=== PATIENT | male | born 1985 | race Caucasian/White ===

== ENCOUNTER → 2017-03-22 | Outpatient (CLI) | payer BC ==
[~2017-03-22] MED LIST: NO MEDICATIONS
--- NOTE | ~2017-03-22 | CR63 ---
[facility] A Service of [facility] & [facility] RADIOLOGY TEXT RESULTS PATIENT: DOROTEO AGARWAL LOCATION: [facility] : [birth year] UNIT #: [id number] AGE: [address]: Barbra Antoine APRN SEX: M ORDER DR: [id number] [facility] [address] [place], [place] [address] [id number] O MR#: [id number] Acc #: [id number] NAME: DOROTEO AGARWAL : 1985 SEX: M STUDY DATE/TIME: 03/22/2017 11:55 UNIT: [facility] ROOM: STUDY DESCRIPTION: CR Chest 2 View Attending Physician: Barbra Antoine Aprn Referring Physician: Barbra Antoine Aprn Ordering Physician: Barbra Antoine Aprn Primary Care Physician: Dionne Huerta M.D. MEDICAL IMAGING REPORT This report is preliminary unless electronic signature is present EXAM Chest 03/22/2017 HISTORY 31-year-old male with history of unexplained cough with congestion past ybo-uf-nghop months, 10 years smoking history. Short of breath, high blood pressure COMPARISON STUDIES Comparison none. FINDINGS Two-view chest demonstrates normal cardiac size and configuration. Hilar structures and mediastinal contours are preserved. Bilateral lungs are expanded and clear. IMPRESSION Negative chest. Dictated by... Papito Farnsworth M.D. THIS IS AN ELECTRONICALLY VERIFIED REPORT Papito Farnsworth M.D. at 03/23/2017 8:12 AM Jovanna TD: 03/22/2017 16:01 JOB #: [id number] MEDICAL IMAGING REPORT Page 1 of 1 COPY
== END | disposition home or self-care (01) ==
LOC: CRAD 11:35
DX: R05 Cough (principal)
CPT/HCPCS: 71020